=== PATIENT | female | born 1940 | race African-American/Black ===

== ENCOUNTER 2018-08-23 17:56 | Inpatient (IN) | payer MEDICARE, OTHER ==
[~2018-08-23] VITALS: Ht 165.1 cm; Wt 87.3 kg
[2018-08-23 20:08] LABS: BASOPHILS % 0.9 % (0.0-2.0); EOSINOPHILS % 3.6 % (0.0-5.0); HEMATOCRIT. 35.1 % (36.0-48.0); HEMOGLOBIN. 11.5 g/dL (12.0-16.0); LYMPHOCYTES % 19.8 % (20.0-50.0); MEAN CORPUSCULAR HEMOGLOBIN 29.5 pg (28.0-32.0); MEAN CORPUSCULAR VOLUME 89.9 fL (81.0-99.0); MONOCYTES % 7.7 % (2.0-8.0); PLATELET 318 x1000/uL (130-400); RED CELL DISTRIBUTION WIDTH 15.2 % (11.6-14.6)
[2018-08-23 20:13] LABS: CHLORIDE 107 mEq/L (98-107)
[2018-08-23 20:20] LABS: ETHANOL BLOOD < 10 mg/dL
[2018-08-23] MEDS ORDERED: SODIUM CHLORIDE 0.9% 1,000 ML IV NR (20:58)
[2018-08-24 05:59] LABS: CLARITY URINE CLEAR (CLEAR); COLOR URINE YELLOW (YELLOW)
[2018-08-24 06:00] LABS: KETONES URINE NEGATIVE (NEGATIVE); LEUKOCYTE ESTERASE URINE NEGATIVE (NEGATIVE); NITRITE URINE NEGATIVE (NEGATIVE); OCCULT BLOOD URINE NEGATIVE (NEGATIVE); PROTEIN URINE NEGATIVE (NEGATIVE); SPECIFIC GRAVITY URINE 1.015 (1.005-1.030); UROBILINOGEN URINE 0.2 E.U./dL (0.2-1.0)
[2018-08-24 06:12] LABS: *AMPHETAMINES SCREEN URINE NEGATIVE (NEGATIVE); *BARBITURATES SCREEN URINE NEGATIVE (NEGATIVE); *BENZODIAZEPINES SCREEN URINE NEGATIVE (NEGATIVE); *COCAINE SCREEN URINE NEGATIVE (NEGATIVE); CANNABINOID URINE SCREEN NEGATIVE (NEGATIVE); METHADONE URINE SCREEN NEGATIVE (NEGATIVE); OPIATES URINE SCREEN NEGATIVE (NEGATIVE); PHENCYCLIDINE URINE SCREEN NEGATIVE (NEGATIVE)
[2018-08-24] MEDS: CLONIDINE 0.1MG TABLET PO PRN ×2 (15:11→21:52)
[2018-08-24 21:15] VITALS: BP 183/53
[2018-08-24] MEDS: INSULIN LISPRO 100 UNITS/ML SUBCUT SCH (21:30)
[2018-08-24] MEDS ORDERED: DEXTROSE 50% WATER 50ML SYRINGE IV PRN (21:30)
[2018-08-24] MEDS: BLOOD SUGAR DIAGNOSTIC STRIP TEST SCH (21:30)
[2018-08-24 22:00] VITALS: BP 183/53
[2018-08-24] MEDS ORDERED: ASCO-339 PO (23:42)
[2018-08-24] MEDS ORDERED: HYDR-4135 PO (23:44)
[2018-08-24] MEDS ORDERED: METF-416 PO (23:44)
[2018-08-25] VITALS: BP 138/60
[2018-08-25] MEDS: ACETAMINOPHEN 325MG TABLET PO PRN (01:09)
[2018-08-25 04:00] VITALS: BP 148/59
[2018-08-25] MEDS: BLOOD SUGAR DIAGNOSTIC STRIP TEST SCH ×4 (07:10→20:35)
[2018-08-25] MEDS: INSULIN LISPRO 100 UNITS/ML SUBCUT SCH ×4 (07:10→20:35)
[2018-08-25 12:13] VITALS: BP 132/53
[2018-08-25] MEDS ORDERED: LORAZEPAM 2MG/ML CPJ IV NR (12:15)
[2018-08-25 13:23] LABS: BASOPHILS % 0.6 % (0.0-2.0); EOSINOPHILS % 2.5 % (0.0-5.0); HEMATOCRIT. 31.8 % (36.0-48.0); HEMOGLOBIN. 10.3 g/dL (12.0-16.0); LYMPHOCYTES % 14.8 % (20.0-50.0); MEAN CORPUSCULAR HEMOGLOBIN 29.2 pg (28.0-32.0); MEAN CORPUSCULAR VOLUME 89.5 fL (81.0-99.0); MEAN PLATELET VOLUME 8.6 fl (7.4-10.4); MONOCYTES % 9.5 % (2.0-8.0); NEUTROPHILS % 72.6 % (40.0-76.0); PLATELET 298 x1000/uL (130-400); RED BLOOD CELL COUNT 3.55 mill/uL (4.2-5.4); RED CELL DISTRIBUTION WIDTH 14.8 % (11.6-14.6)
[2018-08-25 13:36] LABS: CHLORIDE 109 mEq/L (98-107)
[2018-08-25 15:57] VITALS: BP 139/49
[2018-08-25 17:58] LABS: T4 FREE 1.04 ng/dL (0.76-1.46)
[2018-08-25 18:42] LABS: VITAMIN B12 SERUM 559 pg/mL (211-911)
[2018-08-25 18:44] LABS: FOLIC ACID (FOLATE) SERUM > 20.00 ng/mL (>5.38)
[2018-08-25 20:00] VITALS: BP 174/66
[2018-08-25 21:00] VITALS: BP 158/65
[2018-08-26] VITALS: BP 155/61
[2018-08-26 04:00] VITALS: BP 166/64
[2018-08-26] MEDS: CLONIDINE 0.1MG TABLET PO PRN (05:52)
[2018-08-26] MEDS: BLOOD SUGAR DIAGNOSTIC STRIP TEST SCH ×4 (05:56→20:48)
[2018-08-26] MEDS: INSULIN LISPRO 100 UNITS/ML SUBCUT SCH ×4 (07:15→20:51)
[2018-08-26 08:00] VITALS: BP 131/56
[2018-08-26 12:00] VITALS: BP 144/61
[2018-08-26] MEDS ORDERED: DEXAMETHASONE 4MG/ML 1ML VIAL IV SCH (12:00)
[2018-08-26 16:00] VITALS: BP 146/58
[2018-08-26 16:21] LABS: PROTHROMBIN TIME 10.2 sec (9.1-11.1)
[2018-08-26 20:00] VITALS: BP 158/59
[2018-08-26] MEDS: DEXAMETHASONE 4MG/ML 1ML VIAL IV SCH (20:48)
[2018-08-27] VITALS (52 sets, daily range): BP systolic 91–198; BP diastolic 20–96
[2018-08-27] MEDS: DEXAMETHASONE 4MG/ML 1ML VIAL IV SCH ×4 (02:13→20:15)
[2018-08-27] MEDS: BLOOD SUGAR DIAGNOSTIC STRIP TEST SCH ×4 (08:33→20:10)
[2018-08-27] MEDS: INSULIN LISPRO 100 UNITS/ML SUBCUT SCH ×4 (08:34→20:15)
[2018-08-27] MEDS ORDERED: GELATIN SPONGE,ABSORBABLE 12-7MM SPONGE ONE (10:09)
[2018-08-27] MEDS ORDERED: THROMBIN (BOVINE) 5000 UNITS/VIAL TOP ONE (10:09)
[2018-08-27] MEDS ORDERED: NORMAL SALINE 0.9% 10 ML SYR ONE (10:09)
[2018-08-27] MEDS ORDERED: LIDOCAINE HCL/EPINEPHRINE 1%-EPI 1:100,000 20 ML VIAL ONE (10:10)
[2018-08-27] MEDS ORDERED: BACITRACIN 50,000 UNITS/VIAL ONE (10:10)
[2018-08-27] MEDS ORDERED: PROPOFOL 200MG/20ML VIAL IV ONE (10:45)
[2018-08-27] MEDS ORDERED: NEOSTIGMINE METHYLSULFATE 1MG/ML 10 ML VIAL ONE (10:45)
[2018-08-27] MEDS ORDERED: MIDAZOLAM HCL 2 MG/2 ML VIAL ONE (10:45)
[2018-08-27] MEDS ORDERED: FENTANYL CITRATE/PF 50MCG/ML 2ML VIAL ONE ×3 (10:45→11:46)
[2018-08-27] MEDS ORDERED: HYDROCODONE/ACETAMINOPHEN 5/325MG TABLET PO PRN (10:45)
[2018-08-27] MEDS ORDERED: NICARDIPINE 100 MG in SODIUM CHLORIDE 0.9% 60 ML IV PRN (10:45)
[2018-08-27] MEDS ORDERED: DEXAMETHASONE 4MG/ML 1ML VIAL ONE (10:46)
[2018-08-27] MEDS ORDERED: ONDANSETRON HCL 4MG/2ML INJ ONE (10:46)
[2018-08-27] MEDS ORDERED: SUCCINYLCHOLINE CHLORIDE 200MG/10ML IV ONE (10:46)
[2018-08-27] MEDS ORDERED: EPHEDRINE SULFATE 50MG/ML VIAL ONE (10:46)
[2018-08-27] MEDS ORDERED: GLYCOPYRROLATE 0.2 MG/ML 2ML VIAL ONE (10:46)
[2018-08-27] MEDS ORDERED: METOCLOPRAMIDE HCL 10MG/2ML VIAL ONE (10:46)
[2018-08-27] MEDS ORDERED: SODIUM CHLORIDE 0.9% 10ML VIAL ONE (10:46)
[2018-08-27] MEDS ORDERED: PHENYLEPHRINE HCL 10 MG/ML 1ML (IV VIAL) IV ONE (10:46)
[2018-08-27] MEDS ORDERED: ROCURONIUM BROMIDE 10MG/ML VIAL 5ML IV ONE (10:49)
[2018-08-27] MEDS ORDERED: ONDANSETRON INJ IV PRN (13:15)
[2018-08-27] MEDS ORDERED: NALOXONE INJ IV PRN (13:15)
[2018-08-27] MEDS ORDERED: HYDROMORPHONE PCA 10MG/50ML IV PRN (13:15)
[2018-08-27] MEDS: DEXT 5%/LACTATED RINGERS 1,000 ML IV SCH ×2 (13:35→20:15)
[2018-08-27] MEDS: MORPHINE SULFATE 4 MG/ML CPJ (NOT FOR IM USE) IV PRN (13:39)
[2018-08-27] MEDS ORDERED: CEFAZOLIN SODIUM 1000MG/VIAL IV SCH (14:00)
[2018-08-27] MEDS: CEFAZOLIN 1000MG PREMIX 50 ML IV SCH ×2 (14:13→21:26)
[2018-08-27] MEDS: DIPHENHYDRAMINE INJ IV PRN (14:13)
[2018-08-27] MEDS ORDERED: LABETALOL HCL 5MG/ML VIAL 20ML IV ONE (14:30)
[2018-08-28] VITALS (37 sets, daily range): BP systolic 65–194; BP diastolic 36–97
[2018-08-28] MEDS: DEXAMETHASONE 4MG/ML 1ML VIAL IV SCH ×4 (01:48→19:58)
[2018-08-28] MEDS: DIPHENHYDRAMINE INJ IV PRN (01:48)
[2018-08-28 05:28] LABS: HEMATOCRIT. 27.7 % (36.0-48.0); HEMOGLOBIN. 9.1 g/dL (12.0-16.0); MEAN CORPUSCULAR HEMOGLOBIN 29.6 pg (28.0-32.0); MEAN CORPUSCULAR VOLUME 90.5 fL (81.0-99.0); MEAN PLATELET VOLUME 8.9 fl (7.4-10.4); PLATELET 278 x1000/uL (130-400); RED BLOOD CELL COUNT 3.06 mill/uL (4.2-5.4); RED CELL DISTRIBUTION WIDTH 14.8 % (11.6-14.6)
[2018-08-28 06:10] LABS: CHLORIDE 112 mEq/L (98-107)
[2018-08-28] MEDS: INSULIN LISPRO 100 UNITS/ML SUBCUT SCH ×4 (06:16→20:11)
[2018-08-28] MEDS: BLOOD SUGAR DIAGNOSTIC STRIP TEST SCH ×4 (06:16→20:08)
[2018-08-28] MEDS: CEFAZOLIN 1000MG PREMIX 50 ML IV SCH ×2 (06:17→13:25)
[2018-08-28] MEDS: DEXT 5%/LACTATED RINGERS 1,000 ML IV SCH (06:17)
[2018-08-28 11:37] LABS: PLATELET ESTIMATE NORMAL
[2018-08-28] MEDS: CLONIDINE 0.1MG TABLET PO PRN (18:24)
[2018-08-28] MEDS ORDERED: NITROGLYCERIN OINT 1GM/INCH UDPKT TD PRN (19:30)
[2018-08-29] VITALS: BP 149/66
[2018-08-29] MEDS: DEXAMETHASONE 4MG/ML 1ML VIAL IV SCH ×4 (01:56→22:19)
[2018-08-29 04:00] VITALS: BP 196/94
[2018-08-29] MEDS: MORPHINE SULFATE 4 MG/ML CPJ (NOT FOR IM USE) IV PRN (05:14)
[2018-08-29] MEDS: BLOOD SUGAR DIAGNOSTIC STRIP TEST SCH ×4 (06:35→21:00)
[2018-08-29] MEDS: INSULIN LISPRO 100 UNITS/ML SUBCUT SCH ×4 (07:50→21:00)
[2018-08-29 08:00] VITALS: BP 197/90
[2018-08-29] MEDS: CLONIDINE 0.1MG TABLET PO PRN ×2 (08:19→22:20)
[2018-08-29] MEDS ORDERED: LOSARTAN POTASSIUM 50 MG TABLET PO SCH (09:00)
[2018-08-29] MEDS: AMLODIPINE 10MG TABLET PO SCH (10:19)
[2018-08-29 12:00] VITALS: BP 180/88
[2018-08-29] MEDS ORDERED: CLONIDINE 0.1MG TABLET PO PRN (15:00)
[2018-08-29 16:00] VITALS: BP 167/77
[2018-08-29] MEDS: LOSARTAN POTASSIUM 50 MG TABLET PO SCH (18:24)
[2018-08-29 20:00] VITALS: BP 183/91
[2018-08-29] MEDS: HYDRALAZINE HCL 50MG TABLET PO SCH (22:20)
[2018-08-30] VITALS: BP 131/58
[2018-08-30 04:00] VITALS: BP 155/73
[2018-08-30] MEDS: DEXAMETHASONE 4MG/ML 1ML VIAL IV SCH ×4 (06:46→22:13)
[2018-08-30] MEDS: BLOOD SUGAR DIAGNOSTIC STRIP TEST SCH ×4 (06:46→21:00)
[2018-08-30] MEDS: HYDRALAZINE HCL 50MG TABLET PO SCH ×3 (06:49→22:15)
[2018-08-30] MEDS: INSULIN LISPRO 100 UNITS/ML SUBCUT SCH ×4 (06:59→21:00)
[2018-08-30 07:50] LABS: HEMATOCRIT 31.8 % (36.0-48.0); HEMOGLOBIN 10.4 g/dL (12.0-16.0); MEAN CORPUSCULAR HEMOGLOBIN 29.7 pg (28.0-32.0); MEAN CORPUSCULAR VOLUME 90.5 fL (81.0-99.0); PLATELET 331 x1000/uL (130-400); RED BLOOD CELL COUNT 3.51 mill/uL (4.2-5.4); RED CELL DISTRIBUTION WIDTH 14.7 % (11.6-14.6)
[2018-08-30 08:00] VITALS: BP 156/88
[2018-08-30] MEDS: AMLODIPINE 10MG TABLET PO SCH (08:34)
[2018-08-30] MEDS: LOSARTAN POTASSIUM 50 MG TABLET PO SCH ×2 (08:34→17:06)
[2018-08-30 08:37] LABS: CHLORIDE 106 mEq/L (98-107)
[2018-08-30 12:00] VITALS: BP 127/53
[2018-08-30 16:00] VITALS: BP 159/58
[2018-08-30 20:00] VITALS: BP_SYST 154; BP_SYST 169; BP_DIAS 65
[2018-08-31] VITALS: BP_SYST 144; BP_SYST 169; BP_DIAS 53; BP_DIAS 65
[2018-08-31 04:00] VITALS: BP 144/53
[2018-08-31] MEDS: HYDRALAZINE HCL 50MG TABLET PO SCH ×3 (06:36→22:13)
[2018-08-31] MEDS: INSULIN LISPRO 100 UNITS/ML SUBCUT SCH ×4 (06:40→21:00)
[2018-08-31] MEDS: BLOOD SUGAR DIAGNOSTIC STRIP TEST SCH ×4 (06:40→20:56)
[2018-08-31 08:00] VITALS: BP 145/57
[2018-08-31] MEDS: DEXAMETHASONE 4MG/ML 1ML VIAL IV SCH ×2 (09:22→20:56)
[2018-08-31] MEDS: LOSARTAN POTASSIUM 50 MG TABLET PO SCH ×3 (09:22→17:28)
[2018-08-31] MEDS: AMLODIPINE 10MG TABLET PO SCH (09:22)
[2018-08-31] MEDS: MORPHINE SULFATE 4 MG/ML CPJ (NOT FOR IM USE) IV PRN (09:28)
[2018-08-31 10:47] LABS: HEMATOCRIT 34.8 % (36.0-48.0); HEMOGLOBIN 11.5 g/dL (12.0-16.0); MEAN CORPUSCULAR HEMOGLOBIN 29.5 pg (28.0-32.0); MEAN CORPUSCULAR VOLUME 89.4 fL (81.0-99.0); PLATELET 384 x1000/uL (130-400); RED CELL DISTRIBUTION WIDTH 14.5 % (11.6-14.6)
[2018-08-31 11:04] LABS: CHLORIDE 106 mEq/L (98-107)
[2018-08-31 12:00] VITALS: BP 142/48
[2018-08-31 16:00] VITALS: BP 127/46
[2018-08-31 20:00] VITALS: BP 165/68
[2018-09-01] VITALS: BP 127/53
[2018-09-01 04:00] VITALS: BP 127/52
[2018-09-01] MEDS: HYDRALAZINE HCL 50MG TABLET PO SCH ×3 (06:26→21:04)
[2018-09-01] MEDS: BLOOD SUGAR DIAGNOSTIC STRIP TEST SCH ×4 (06:32→21:03)
[2018-09-01] MEDS: INSULIN LISPRO 100 UNITS/ML SUBCUT SCH ×4 (06:57→22:28)
[2018-09-01 07:00] VITALS: BP 158/74
[2018-09-01] MEDS: DEXAMETHASONE 4MG/ML 1ML VIAL IV SCH ×2 (08:45→21:04)
[2018-09-01] MEDS: AMLODIPINE 10MG TABLET PO SCH (08:45)
[2018-09-01 12:25] VITALS: BP 127/55
[2018-09-01] MEDS: ACETAMINOPHEN 325MG TABLET PO PRN (12:54)
[2018-09-01 15:49] VITALS: BP 154/67
[2018-09-01] MEDS: LOSARTAN POTASSIUM 50 MG TABLET PO SCH (17:52)
[2018-09-01] MEDS: DOCUSATE SODIUM 100MG CAPSULE PO SCH (17:52)
[2018-09-01 20:00] VITALS: BP 156/49
[2018-09-02] VITALS: BP 140/55
[2018-09-02 04:00] VITALS: BP 140/59
[2018-09-02] MEDS: HYDRALAZINE HCL 50MG TABLET PO SCH ×3 (06:19→22:06)
[2018-09-02] MEDS: BLOOD SUGAR DIAGNOSTIC STRIP TEST SCH ×4 (06:20→20:48)
[2018-09-02] MEDS: INSULIN LISPRO 100 UNITS/ML SUBCUT SCH ×4 (07:21→21:00)
[2018-09-02 08:00] VITALS: BP 143/63
[2018-09-02] MEDS: DOCUSATE SODIUM 100MG CAPSULE PO SCH ×2 (08:56→16:07)
[2018-09-02] MEDS: DEXAMETHASONE 4MG/ML 1ML VIAL IV SCH (08:56)
[2018-09-02] MEDS: AMLODIPINE 10MG TABLET PO SCH (08:56)
[2018-09-02] MEDS: LOSARTAN POTASSIUM 50 MG TABLET PO SCH ×2 (08:57→16:07)
[2018-09-02 12:00] VITALS: BP 143/60
[2018-09-02] MEDS ORDERED: HYDROCODONE/ACETAMINOPHEN 5/325MG TABLET PO PRN (12:15)
[2018-09-02] MEDS: LACTULOSE 20G/30ML UDC PO SCH ×3 (14:16→20:48)
[2018-09-02 16:00] VITALS: BP 165/61
[2018-09-02 20:00] VITALS: BP 144/67
[2018-09-02] MEDS ORDERED: POLYETHYLENE GLYCOL 3350 (17GM) 1 DOSE PACK PO SCH (21:00)
[2018-09-03] VITALS: BP 132/67
[2018-09-03 04:00] VITALS: BP 128/47
[2018-09-03] MEDS: HYDRALAZINE HCL 50MG TABLET PO SCH ×2 (06:34→13:40)
[2018-09-03] MEDS: BLOOD SUGAR DIAGNOSTIC STRIP TEST SCH ×2 (06:34→12:28)
[2018-09-03] MEDS: INSULIN LISPRO 100 UNITS/ML SUBCUT SCH ×2 (07:50→12:29)
[2018-09-03 08:00] VITALS: BP 101/50
[2018-09-03] MEDS: AMLODIPINE 10MG TABLET PO SCH (09:00)
[2018-09-03] MEDS: LACTULOSE 20G/30ML UDC PO SCH ×2 (09:00→13:40)
[2018-09-03] MEDS ORDERED: DEXAMETHASONE 4MG/ML 1ML VIAL IV SCH (09:00)
[2018-09-03] MEDS: LOSARTAN POTASSIUM 50 MG TABLET PO SCH (09:00)
[2018-09-03] MEDS: DOCUSATE SODIUM 100MG CAPSULE PO SCH (09:00)
[2018-09-03 10:10] LABS: CHLORIDE 108 mEq/L (98-107)
[2018-09-03 10:29] LABS: HEMATOCRIT 38.1 % (36.0-48.0); HEMOGLOBIN 12.3 g/dL (12.0-16.0); MEAN CORPUSCULAR HEMOGLOBIN 29.5 pg (28.0-32.0); MEAN CORPUSCULAR VOLUME 91.2 fL (81.0-99.0); PLATELET 354 x1000/uL (130-400); RED BLOOD CELL COUNT 4.18 mill/uL (4.2-5.4); RED CELL DISTRIBUTION WIDTH 14.9 % (11.6-14.6)
[2018-09-03 12:00] VITALS: BP 145/52
[2018-09-03 13:47] VITALS: BP 135/86
== END 2018-09-03 14:30 | disposition home or self-care (01) | DRG 471 ==
LOC: ER 17:56 → 5WST 22:25 → EDBEDREQ 22:33 → EDBEDREQTM 22:33 → ENRESERV 08-24 19:01 → MICUNO 08-27 11:51 → 6EST 08-28 15:35
PROVIDERS: ADMIT Internal Medicine; ATTEND Internal Medicine
PROC: 0RG10K0 Fusion of Cervical Vertebral Joint with Nonautologous Tissue Substitute, Anterior Approach, Anterior Column, Open Approach (ICD-10-PCS; principal; 2018-08-27)
PROC: 0RB30ZZ Excision of Cervical Vertebral Disc, Open Approach (ICD-10-PCS; 2018-08-27)
DX: M47.12 Other spondylosis with myelopathy, cervical region (principal); G82.50 Quadriplegia, unspecified; G95.89 Other specified diseases of spinal cord; M48.02 Spinal stenosis, cervical region; D64.9 Anemia, unspecified; N18.9 Chronic kidney disease, unspecified; E11.22 Type 2 diabetes mellitus with diabetic chronic kidney disease; E86.0 Dehydration; R26.2 Difficulty in walking, not elsewhere classified; M47.897 Other spondylosis, lumbosacral region; M47.893 Other spondylosis, cervicothoracic region; D72.829 Elevated white blood cell count, unspecified; G89.29 Other chronic pain; I12.9 Hypertensive chronic kidney disease with stage 1 through stage 4 chronic kidney disease, or unspecified chronic kidney disease; M48.061 Spinal stenosis, lumbar region without neurogenic claudication; R13.10 Dysphagia, unspecified; Z79.84 Long term (current) use of oral hypoglycemic drugs; Z83.3 Family history of diabetes mellitus
CPT/HCPCS: 36415; 70551; 71045; 72040; 72141; 72146; 72148; 76000; 80048; 80305; 82550; 82607; 82746; 82962; 83036; 83880; 84439; 84443; 84481; 84484; 85027; 86850; 86900; 88304; 88311; 92610; 93005; 95925; 95926; 95928; 95929; 97110; 97116; 97162; 97164; 97166; 97530; 97535; 99285; C1713; J0330; J0690; J1100; J1200; J1815; J2250; J2270; J2370; J2405; J2704; J2710; J2765; J3010; J3490; J7050; J7121; L0172